=== PATIENT | female | born 1930 | race Caucasian/White ===

== ENCOUNTER 2016-09-20 11:44 | Observation (INO) | payer MEDICARE, OTHER ==
--- NOTE | ~2016-09-20 | HP ---
History And Physical [id number] [place]. [address] NAME: KEKE LARSON : 32 STATUS : ADM Justin PAT#: [id number] AGE: 85 ADM/REG DATE : 09/20/16 MR#: [id number] REPORT SERV DATE: 09/20/16 DICTATED BY: ELIEZER VELAZQUEZ DATE: 09/20/16 REPORT STATUS : Draft TRANSCRIBED BY: MODL DATE: 09/20/16 DATE OF ADMISSION: 09/20/2016 CHIEF COMPLAINT: "I have too much fluid." HISTORY OF PRESENT ILLNESS: Ms. Larson is an 85-year-old female with a history of hypertension, atrial fibrillation, and myasthenia gravis, who presented to the hospital with a complaint of volume overload. The patient states that for the past couple of weeks, she has been progressively feeling weak, states that she spends most of her time in bed and can transfer herself only to her commode and then goes back to bed. She says that with the slightest activity she feels severely short of breath. She states that she noticed that she was developing lower extremity edema associated with severe pain prompting her to present to the hospital today. At the time of her presentation to the emergency room, Hospital Medicine was consulted to admit the patient for anasarca. At the time of my evaluation, review of her labs noted. Her BNP was normal, her electrolytes were all normal, as well as her albumin and liver function tests. On physical exam, I did not note any findings consistent with anasarca. The patient only had bilateral lower extremity edema likely due to venous stasis. However, on interviewing with the patient, the patient states that she feels she has a lot of fluid and does want to leave until the fluid has been got off her. Given this, a decision was made to admit the patient to observation for trial of IV Lasix and also to observe the patient. Also history given by the patient states that she feels severely weak and cannot really carry on her activities of daily living. She states that she lives at home with her who also has other medical issues. Given this plan, decision was also made to admit the patient to have the patient evaluated by Physical Therapy. She denies any fevers, any chills, or any recent sick contacts. REVIEW OF SYSTEMS: A 12-point review of system was performed. All systems were negative except as noted in the HPI. PAST MEDICAL HISTORY: 1. Hypertension. 2. Gastroesophageal reflux disease. 3. Atrial fibrillation. 4. Myasthenia gravis. 5. Peripheral artery disease. 6. Pain management, on chronic pain medications. PAST SURGICAL HISTORY: 1. 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 2. Cholecystectomy. 3. Appendectomy. 4. Hysterectomy with left oophorectomy. 5. Thymectomy. FAMILY HISTORY: Noncontributory. History And Physical [address] [address] NAME: KEKE LARSON : 32 STATUS : ADM Justin PAT#: [id number] AGE: 85 ADM/REG DATE : 09/20/16 MR#: [id number] REPORT SERV DATE: 09/20/16 DICTATED BY: ELIEZER VELAZQUEZ DATE: 09/20/16 REPORT STATUS : Draft TRANSCRIBED BY: PAPI DATE: 09/20/16 SOCIAL HISTORY: The patient lives in [place], [place]. and lives at home with her . She denies any tobacco use, any alcohol use, or illicit drug use. Ambulates with a walker. ALLERGIES: THE PATIENT IS ALLERGIC TO NITROFURANTOIN AND MUSCLE RELAXANTS. HOME MEDICATIONS: 1. Valium 2 mg p.o. at bedtime. 2. Enalapril 10 mg p.o. daily. 3. Flecainide 100 mg p.o. daily. 4. Flecainide 50 mg p.o. at bedtime. 5. Furosemide 40 mg p.o. daily. 6. Furosemide 40 mg p.o. at bedtime as needed. 7. Gabapentin 100 mg p.o. three times a day. 8. Omeprazole 40 mg p.o. daily. 9. Pyridostigmine 120 mg p.o. four times daily. 10.Warfarin 3 mg p.o. at bedtime. PHYSICAL EXAMINATION: VITAL SIGNS: On presentation, blood pressure 144/84 with a pulse of 98, respiration 18, and O2 saturation 95% on room air. GENERAL: The patient is lying in bed, does no appear in acute distress. Speaking in full sentences. HEENT: Normocephalic and atraumatic. Extraocular motors intact. Moist oral mucosa. NECK: Trachea midline and symmetric. No JVD noted. No thyromegaly present. No lymphadenopathy palpated. CHEST: Well-healed midline scar noted. Nontender to palpation. CARDIOVASCULAR: Irregularly irregular rate and rhythm. I did not appreciate any murmurs. LUNGS: Clear to auscultation bilaterally. No added breath sounds. ABDOMEN: Positive bowel sounds. Nontender. Nondistended. No masses palpated. EXTREMITIES: 1+ to 2+ pitting edema noted in lower extremities bilaterally from the knee distally with right worse than left. Extremities appeared erythematous; however, no evidence of cyanosis or clubbing present. NEUROLOGIC: Alert and oriented x3. No focal deficits appreciated. LABORATORY DATA: WBC 7.0, hemoglobin 14.0, hematocrit 41.2, platelets 219. Sodium 139, potassium 4.1, chloride 102, bicarb 35, BUN is 17, creatinine 0.75, glucose 72, BNP 93.8. IMAGING: Portable chest x-ray: Impression, cardiomegaly, no acute process. ASSESSMENT/PLAN: 1. Lower extremity edema. No evidence of anasarca. BNP normal. The patient otherwise complaining of lower extremity pain. We will admit to observation and start the patient on Lasix IV 40 mg x3 doses. Consult PT for evaluation and treatment. 2. Myasthenia gravis. Currently on Pyridostigmine. Continue current therapy. 3. Gastroesophageal reflux disease, stable, continue omeprazole. History And Physical [address] [address] NAME: KEKE LARSON : 32 STATUS : ADM Justin PAT#: [id number] AGE: 85 ADM/REG DATE : 09/20/16 MR#: [id number] REPORT SERV DATE: 09/20/16 DICTATED BY: ELIEZER VELAZQUEZ DATE: 09/20/16 REPORT STATUS : Draft TRANSCRIBED BY: MODL DATE: 09/20/16 4. Atrial fibrillation. The patient currently on anticoagulation with warfarin. She is rate controlled. We will continue current therapy. 5. Hypertension, controlled. Continue home medications. 6. The patient will be full code at this time. 7. Deep venous thrombosis prophylaxis. The patient is already therapeutically anticoagulated on warfarin. JAYDA/PAPI Eliezer Velazquez MD / [id number] CC: Brent Trivedi M.D.
--- NOTE | ~2016-09-20 | DS ---
Discharge Summary [place] [facility] [place]. [address] NAME: KEKE DENSON : 32 STATUS : ADM Justin PAT#: [id number] AGE: 85 ADM/REG DATE : 09/20/16 MR#: [id number] REPORT SERV DATE: 09/22/16 DICTATED BY: ELIEZER VELAZQUEZ DATE: 09/21/16 REPORT STATUS : Draft TRANSCRIBED BY: MODL DATE: 09/21/16 ADMISSION DATE: 09/20/2016 DISCHARGE DATE: The patient is an 85-year-old female with a history of hypertension, atrial fibrillation, who presented to the hospital with a complaint of volume overload. For further details, please refer to H and P dictated by me on 09/20/2016. HOSPITAL COURSE: The patient was admitted to observation for a trial of IV Lasix. She has responded well to IV Lasix with over 1.3 L of output. Additional history obtained, noted that the patient is currently being seen by home health who tried to get the patient out of bed. Also, the patient is bed bound. From history obtained yesterday, she only leaves bed only to use her bedside commode. Given this additional history, the utility of a PT eval was deemed not necessary as the patient will not be able to participate in active physical therapy to regain strength and function. Given the patient has remained hemodynamically stable, has responded to IV fluids, the patient is subsequently being discharged today. Plan has been discussed with patient, who voices understanding and is agreeable with this plan. DISCHARGE DIAGNOSES: 1. Lower extremity edema. 2. Myasthenia gravis. 3. Gastroesophageal reflux disease. 4. Atrial fibrillation. 5. Hypertension. DISPOSITION: The patient will be discharged home with home health and PT. ACTIVITY: As tolerated. DIET: As tolerated. Greater than 30 minutes were spent coordinating care, providing counseling, dictation of note, and medication reconciliation. DICTATED BY: MD JAYDA Moffett/PAPI Eliezer Velazquez MD / [id number] Discharge [facility] [address] [facility] [place]. [address] NAME: KEKE DENSON : 32 STATUS : ADM Justin PAT#: [id number] AGE: 85 ADM/REG DATE : 09/20/16 MR#: [id number] REPORT SERV DATE: 09/22/16 DICTATED BY: ELIEZER VELAZQUEZ DATE: 09/21/16 REPORT STATUS : Draft TRANSCRIBED BY: MODL DATE: 09/21/16 CC: MD Kristy Moffett MD
--- NOTE | ~2016-09-20 | DS ---
Discharge Summary [address] [place]. [address] NAME: KEKE DENSON : 32 STATUS : ADM Justin PAT#: [id number] AGE: 85 ADM/REG DATE : 09/20/16 MR#: [id number] REPORT SERV DATE: 09/22/16 DICTATED BY: ELIEZER VELAZQUEZ DATE: 09/22/16 REPORT STATUS : Draft TRANSCRIBED BY: MODL DATE: 09/22/16 ADMISSION DATE: 09/20/2016 DISCHARGE DATE: ADDENDUM: To discharge summary dictated by mn on 09/21/2016, work #[id number]. The patient was unable to go home yesterday due to logistics reasons. Case management has been consulted to assist in the process and the assistance is greatly appreciated. The patient will subsequently be discharged today. All other information in the discharge summary remains the same. DICTATED BY: MD JAYDA Moffett/PAPI Eliezer Velazquez MD / [id number] CC: MD Kristy Moffett MD
[~2016-09-20 11:44] MED LIST: ACET500CAP PO; BEN25 PO; BETAPACE80 PO; C5 PO; COUMADIN3 MG PO; COUMADIN4 MG PO; FLECAINIDE100 MG PO; FLECAINIDE50 MG PO; HALF81 PO; HCTZ12.5 PO; HYDROCHLOROT12.5 MG PO; JANTOVEN3 MG PO; K-TABS10 MEQ PO; L40 PO; LAN25 PO; LOP25 PO; LORTAB 5 PO; MICRO-K10 MEQ PO; MOBIC15 MG PO; NEXIUM40 PO; NORCO1 TA2 PO; NORCO1 TAB PO; PCET PO; PRILOSEC40 MG PO; PYRID60 PO; SOTALOL 80 MG OR; TAMBO50 PO; TAMBOCOR PO; V120 PO; V2 PO; VASOTEC10 PO; VERELAN240 MG PO; VICODINTAB PO; VISINE0.05 % OPH; VOLTAREN1 % TOP; ZOLOFT25 MG PO
[2016-09-20 12:29] LABS: BASOPHILS 0 %; EOSINOPHILS 0 %; IMMATURE GRANULOCYTES 0.1 %; IMMATURE GRANULOCYTES ABSOLUTE 0.01 10/3/uL (0.0-0.11); LYMPHOCYTES 36.1 %; LYMPHOCYTES ABSOLUTE 2.52 10/3/uL (0.67-4.30); MEAN PLATELET VOLUME 10.6 fL (9.2-13.0); MONOCYTES 7.7 %; MONOCYTES ABSOLUTE 0.54 10/3/uL (0.21-1.20); NEUTROPHILS 56.1 %; NEUTROPHILS ABSOLUTE 3.92 10/3/uL (2.02-8.40); RED CELL COUNT 4.49 10/6/uL (4.0-5.6)
[2016-09-20 12:30] LABS: ER CBC TAT 0 Hrs 05 Mins; HEMATOCRIT 41.2 % (36.0-48.0); MANUAL DIFF NO %; MEAN CORPUSCULAR HEMOGLOB 31.2 pg (26.0-34.0); MEAN CORPUSCULAR VOLUME 91.8 fL (80-100); PLATELET COUNT 219 10/3/uL (150-400); RBC DISTRIBUTION WIDTH 12.9 % (12.0-16.0)
[2016-09-20 12:36] LABS: INTERNATIONAL NORMAL RATI 2.3 UNITS (-); PARTIAL THROMBO TIME 39.5 SEC (22.5-37.2); PROTIME (NOT ORD) 25.3 SEC (12.0-14.5)
[2016-09-20 12:53] LABS: BUN (BLOOD UREA NITROGEN) 17 MG/DL (6-23); CALCIUM, SERUM 9.1 MG/DL (8.5-10.4); CHEST PAIN PROFILE TAT 0 Hrs 29 Mins; CHLORIDE, SERUM 102 MMOL/L (96-112); CO2 (CARBON DIOXIDE) 35 MMOL/L (24-34); CREATININE 0.75 MG/DL (0.55-1.02); GFR AFRICAN AMERICAN 85 ML/MIN (>=60); GFR NON AFRICAN AMERICAN 74 ML/MIN (>=60); GLUCOSE, SERUM 72 MG/DL (60-99); POTASSIUM, SERUM 4.1 MMOL/L (3.5-5.3); SODIUM, SERUM 139 MMOL/L (135-148); TROPONIN I <0.02 NG/ML (<0.05); ULTRASENSITIVE TSH 0.914 MCIU/ML (0.358-3.740)
[2016-09-20] MEDS ORDERED: NEUR100 PO (13:11)
[2016-09-20] MEDS ORDERED: PYRID60 PO (13:12)
[2016-09-20] MEDS ORDERED: L40 PO ×2 (13:13→13:14)
[2016-09-20] MEDS ORDERED: FLECAINIDE50 MG PO ×2 (13:17)
[2016-09-20] MEDS ORDERED: VASOTEC10 PO (13:19)
[2016-09-20] MEDS ORDERED: COUMADIN3 MG PO (13:19)
[2016-09-20] MEDS ORDERED: PRILOSEC40 MG PO (13:20)
[2016-09-20] MEDS ORDERED: V2 PO (13:20)
[2016-09-20] MEDS ORDERED: NORCO1 TAB PO (13:21)
[2016-09-20] MEDS ORDERED: BLU EMU (13:24)
[2016-09-20 13:38] LABS: ALBUMIN 3.8 G/DL (3.5-5.0); ALKALINE PHOSPHATASE 72 U/L (45-117); SGPT(ALT) 26 U/L (5-65); TOTAL BILIRUBIN 0.6 MG/DL (0-1.2); TOTAL PROTEIN 7.5 G/DL (6.0-8.5)
[2016-09-20 13:39] LABS: DIRECT BILIRUBIN 0.1 MG/DL (0.0-0.4); INDIRECT BILIRUBIN(NOT ORDER) 0.5 MG/DL (0.1-0.9)
[2016-09-20 13:40] LABS: SGOT(AST) 26 U/L (5-40)
[2016-09-20 13:43] LABS: PREALBUMIN 21.5 MG/DL (17.0-43.0)
[2016-09-20 16:44] LABS: FREE T4 1.42 NG/DL (0.76-1.46)
[2016-09-21 05:21] LABS: BASOPHILS 0 %; EOSINOPHILS 0 %; HEMATOCRIT 42.4 % (36.0-48.0); HEMOGLOBIN 13.9 g/dL (12.0-16.0); IMMATURE GRANULOCYTES 0.1 %; IMMATURE GRANULOCYTES ABSOLUTE 0.01 10/3/uL (0.0-0.11); LYMPHOCYTES 47.1 %; MEAN CORPUS HGB CONC 32.8 g/dL (32.0-36.0); MEAN CORPUSCULAR HEMOGLOB 30.7 pg (26.0-34.0); MEAN CORPUSCULAR VOLUME 93.6 fL (80-100); MEAN PLATELET VOLUME 10.5 fL (9.2-13.0); MONOCYTES 7.9 %; MONOCYTES ABSOLUTE 0.54 10/3/uL (0.21-1.20); NEUTROPHILS 44.9 %; NEUTROPHILS ABSOLUTE 3.05 10/3/uL (2.02-8.40); PLATELET COUNT 208 10/3/uL (150-400); RBC DISTRIBUTION WIDTH 12.8 % (12.0-16.0); RED CELL COUNT 4.53 10/6/uL (4.0-5.6); WHITE BLOOD CELLS 6.8 10/3/uL (4.5-10.5)
[2016-09-21 05:22] LABS: MANUAL DIFF NO %
[2016-09-21 05:35] LABS: INTERNATIONAL NORMAL RATI 2.3 UNITS (-); PROTIME (NOT ORD) 24.7 SEC (12.0-14.5)
[2016-09-21 05:40] LABS: A/G RATIO 0.9 (0.7-1.9); ALBUMIN 3.4 G/DL (3.5-5.0); ALKALINE PHOSPHATASE 68 U/L (45-117); BUN (BLOOD UREA NITROGEN) 21 MG/DL (6-23); CALCIUM, SERUM 8.8 MG/DL (8.5-10.4); CHLORIDE, SERUM 102 MMOL/L (96-112); CO2 (CARBON DIOXIDE) 33 MMOL/L (24-34); GFR AFRICAN AMERICAN 79 ML/MIN (>=60); GFR NON AFRICAN AMERICAN 68 ML/MIN (>=60); GLOBULIN 3.6 G/DL (2.5-4.1); POTASSIUM, SERUM 3.8 MMOL/L (3.5-5.3); SGOT(AST) 24 U/L (5-40); SGPT(ALT) 26 U/L (5-65); SODIUM, SERUM 138 MMOL/L (135-148)
[2016-09-21 05:41] LABS: GLUCOSE, SERUM 96 MG/DL (60-99); TOTAL BILIRUBIN 1.1 MG/DL (0-1.2)
[2016-09-22 03:41] LABS: INTERNATIONAL NORMAL RATI 2.6 UNITS (-); PROTIME (NOT ORD) 27.4 SEC (12.0-14.5)
== END 2016-09-22 16:30 | disposition home health service (06) ==
LOC: ER 11:44 → CDU1 14:25
PROVIDERS: Hospitalist; Internal Medicine
DX: R60.0 Localized edema (principal); G70.00 Myasthenia gravis without (acute) exacerbation; K21.9 Gastro-esophageal reflux disease without esophagitis; I48.91 Unspecified atrial fibrillation; I10 Essential (primary) hypertension; Z79.01 Long term (current) use of anticoagulants; Z79.899 Other long term (current) drug therapy; Z90.49 Acquired absence of other specified parts of digestive tract; Z90.710 Acquired absence of both cervix and uterus; Z98.890 Other specified postprocedural states
CPT/HCPCS: 71010; 80048; 80053; 80076; 83735; 83880; 84134; 84439; 84443; 84484; 85025; 85610; 85730; 93005; 96374; 96375; 96376; 97162-GP; 97530-GP; 99285; A9270-GY; G0378; G8978-CM-GP; G8979-CL-GP; J2405

== ENCOUNTER 2017-01-09 03:16 | Inpatient (IN) | payer MEDICARE, OTHER ==
[~2017-01-09] VITALS: Ht 157.5 cm; Wt 75.5 kg
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
--- NOTE | ~2017-01-09 | OP ---
Record Of Operation [facility] [address] [place]. [address] NAME: KEKE DENSON : 32 STATUS : ADM IN [facility]#: [id number] AGE: 86 ADM/REG DATE : 01/09/17 MR#: [id number] REPORT SERV DATE: 01/10/17 DICTATED BY: RICARDO HARRY DATE: 01/09/17 REPORT STATUS : Draft TRANSCRIBED BY: MODL DATE: 01/09/17 DATE OF PROCEDURE: 01/09/2017 PREOPERATIVE DIAGNOSIS: Right shoulder dislocation. POSTOPERATIVE DIAGNOSIS: Right shoulder dislocation. PROCEDURE: Closed reduction of right shoulder under anesthesia. ANESTHESIA: General. ESTIMATED BLOOD LOSS: None. IMPLANTS: None. SPECIMEN: None. ANTIBIOTICS: None. HISTORY: An 86-year-old who dislocated her shoulder yesterday at her [facility]. Seen in the emergency department last night, was unable to be reduced, so she was transferred here for reduction in the operating room. We discussed the risks and benefits of surgery, closed versus open reduction, with her and her family, and they elected to proceed. OPERATIVE NOTE: The patient was seen in the preoperative area, consented, and marked. We answered all question she had to her satisfaction. She was then taken to the operative suite, placed in supine position, and underwent general anesthesia. We then closed-reduced her shoulder by performing a reduction maneuver. We then used the x-ray to confirm reduction of the shoulder on multiple views including an axillary lateral. We then, when that was completed, placed her in a sling. She was awakened, no complications, taken to the PACU in stable condition. POSTOPERATIVE PLAN: She will be discharged back to her [facility] when available. ANTHONY/PAPI Ricardo Harry MD / [id number] CC: Ricardo Harry MD
--- NOTE | ~2017-01-09 | HP ---
History And Physical [facility] [address] [facility] [place]. [address] NAME: KEKE DENSON : 32 STATUS : ADM IN [facility]#: [id number] AGE: 86 ADM/REG DATE : 01/09/17 MR#: [id number] REPORT SERV DATE: 01/09/17 DICTATED BY: IRAM RAMOS DATE: 01/09/17 REPORT STATUS : Draft TRANSCRIBED BY: PAPI DATE: 01/09/17 DATE OF ADMISSION: 01/09/2017 REASON FOR CONSULTATION: Medical management. This is an 86 years old female with a past medical history of myasthenia gravis, currently on Mestinon, being cared for by her primary care physician, and history of chronic atrial fibrillation on chronic anticoagulation with warfarin. The patient was recently discharged from the hospital in August 2016, for which the patient was transferred to rehab facility at [facility] the night prior to her admission. The patient was being transferred by personnel at the [facility] facility and during the transfer developed acute right shoulder pain according to the patient's daughter. An x-ray was performed by the physician at that facility and found to have acute right shoulder dislocation. An attempted bedside reduction was performed and was not successful. Therefore the patient was transferred to [facility]. The patient is currently admitted to Orthopedic Surgery Service with Dr. Ricardo Harry. The patient denies any chest pain or shortness of breath but does have obvious pain from the right shoulder area. The patient's myasthenia gravis currently has been stable, however states that she cannot miss her Mestinon dosage and is currently a couple of hours late due to her transfer to the hospital. REVIEW OF SYSTEMS: No subjective fever or chills. No nausea or vomiting. No chest pain. No shortness of breath. No abdominal pain. Positive right shoulder pain. Please refer to HPI for further details. PAST MEDICAL HISTORY: Myasthenia gravis. Atrial fibrillation. GERD. Hypertension. Peripheral artery disease. Chronic pain management. Diastolic CHF. Iron-deficiency anemia with microcytic anemia. PAST SURGICAL HISTORY: Cholecystectomy, appendectomy, hysterectomy with left oophorectomy with thymectomy and left extremity thrombectomy. FAMILY HISTORY: Coronary artery disease and type 2 diabetes. SOCIAL HISTORY: No tobacco, alcohol, or illicit drugs. At baseline, uses a walker. Currently at [facility] facility in [facility]. ALLERGIES: ALLERGIES TO MUSCLE RELAXANTS AND MACROBID. PHYSICAL EXAMINATION: VITAL SIGNS: Temperature of 98.7, blood pressure 146/96 with a pulse of 113, and saturating 95% on room air. GENERAL: The patient is alert and oriented x3, currently in some mild distress secondary to the right shoulder pain but otherwise stable and alert and oriented x3. RESPIRATORY: Clear to auscultation bilaterally. No wheezes or crackles. No signs of tachypnea. History And Physical [address] [address] NAME: KEKE DENSON : 32 STATUS : ADM IN [facility]#: [id number] AGE: 86 ADM/REG DATE : 01/09/17 MR#: [id number] REPORT SERV DATE: 01/09/17 DICTATED BY: IRAM RAMOS DATE: 01/09/17 REPORT STATUS : Draft TRANSCRIBED BY: PAPI DATE: 01/09/17 CARDIOVASCULAR: S1, S2. Irregularly irregular. No murmurs, rubs, or gallops. No JVD. ABDOMEN: Positive bowel sounds. Soft, nontender. No rebound. No fluid wave. No distention. EXTREMITIES: Warm with bilateral trace edema of the lower extremities and dislocated right upper extremity. NEUROLOGIC: Cranial nerves II through XII are grossly intact. Moves all four extremities, however with some limitation of the right upper extremity secondary to acute dislocation. LAB DATA: Sodium 138, potassium 4.1 with a chloride of 104, bicarb of 29, BUN 15, creatinine 0.61 with a glucose of 92, albumin of 3.1, total bilirubin of 0.7 with alkaline phosphatase of 74, ALT of 19, AST of 18. White count of 7.9 with a hemoglobin of 13.2, platelet count of 181, INR of 3.1. EKG with atrial fibrillation, chronic with T-wave in the inferior leads. No ST elevation. Ventricular rate of around 111. ASSESSMENT AND PLAN: 1. Acute right shoulder dislocation. 2. Myasthenia gravis. 3. Chronic atrial fibrillation. 4. Hypertension. The patient is currently admitted to Orthopedic Surgery Service. They plan on sending the patient to the OR today. I have discussed with Dr. Harry concerning the patient's INR being 3.1. He plans on performing a closed reduction at this time; however, if the closed reduction is not successful, then the patient will be sent back to the room and INR will be treated at that time and scheduled for repeat procedure with open reduction if necessary. I also agree with continue with pain management. The patient's pain is currently not controlled at this time and causing some mild tachycardia in the low teens. Nurse informed also recommend to continue with the patient's myasthenia gravis medication with Mestinon and also continue with her cardiac medications. MILENA/PAPI Iram Ramos M.D. / [id number] CC: Ricardo Harry MD UNKNOWN
[~2017-01-09 03:16] MED LIST changes: +BLU EMU; +NEUR100 PO
[2017-01-09] MEDS ORDERED: NEUR100 PO (06:22)
[2017-01-09] MEDS ORDERED: L40 PO (06:23)
[2017-01-09] MEDS ORDERED: PYRID60 PO (06:23)
[2017-01-09] MEDS ORDERED: FLECAINIDE50 MG PO ×2 (06:24→06:25)
[2017-01-09] MEDS ORDERED: VASOTEC10 PO (06:25)
[2017-01-09] MEDS ORDERED: V2 PO (06:26)
[2017-01-09] MEDS ORDERED: C2 PO (06:26)
[2017-01-09] MEDS ORDERED: PRILOSEC40 MG PO (06:27)
[2017-01-09] MEDS ORDERED: NORCO1 TAB PO (06:29)
[2017-01-09 10:04] LABS: BASOPHILS 0 %; EOSINOPHILS 0 %; HEMOGLOBIN 13.2 g/dL (12.0-16.0); IMMATURE GRANULOCYTES 0.1 %; IMMATURE GRANULOCYTES ABSOLUTE 0.01 10/3/uL (0.0-0.11); LYMPHOCYTES ABSOLUTE 3.16 10/3/uL (0.67-4.30); MEAN CORPUSCULAR HEMOGLOB 29.6 pg (26.0-34.0); MEAN PLATELET VOLUME 10.7 fL (9.2-13.0); MONOCYTES 7.1 %; MONOCYTES ABSOLUTE 0.56 10/3/uL (0.21-1.20); NEUTROPHILS 52.8 %; NEUTROPHILS ABSOLUTE 4.17 10/3/uL (2.02-8.40); PLATELET COUNT 181 10/3/uL (150-400); RBC DISTRIBUTION WIDTH 12.9 % (12.0-16.0); RED CELL COUNT 4.46 10/6/uL (4.0-5.6); WHITE BLOOD CELLS 7.9 10/3/uL (4.5-10.5)
[2017-01-09 10:06] LABS: MANUAL DIFF NO %; MEAN CORPUSCULAR VOLUME 89.7 fL (80-100)
[2017-01-09 10:11] LABS: INTERNATIONAL NORMAL RATI 3.1 UNITS (-)
[2017-01-09 10:12] LABS: PROTIME (NOT ORD) 31.8 SEC (12.0-14.5)
[2017-01-09 10:20] LABS: A/G RATIO 0.9 (0.7-1.9); ALBUMIN 3.1 G/DL (3.5-5.0); ALKALINE PHOSPHATASE 74 U/L (45-117); CALCIUM, SERUM 8.9 MG/DL (8.5-10.4); CHLORIDE, SERUM 104 MMOL/L (96-112); CO2 (CARBON DIOXIDE) 29 MMOL/L (24-34); CREATININE 0.61 MG/DL (0.55-1.02); DIRECT BILIRUBIN 0.1 MG/DL (0.0-0.4); GFR AFRICAN AMERICAN 96 ML/MIN (>=60); GFR NON AFRICAN AMERICAN 83 ML/MIN (>=60); GLOBULIN 3.5 G/DL (2.5-4.1); GLUCOSE, SERUM 92 MG/DL (60-99); INDIRECT BILIRUBIN(NOT ORDER) 0.6 MG/DL (0.1-0.9); POTASSIUM, SERUM 4.1 MMOL/L (3.5-5.3); SGOT(AST) 18 U/L (5-40); SGPT(ALT) 19 U/L (5-65); SODIUM, SERUM 138 MMOL/L (135-148); TOTAL BILIRUBIN 0.7 MG/DL (0-1.2); TOTAL PROTEIN 6.6 G/DL (6.0-8.5)
[2017-01-09 10:21] LABS: BUN (BLOOD UREA NITROGEN) 15 MG/DL (6-23)
[2017-01-10 05:25] LABS: BASOPHILS 0.1 %; BASOPHILS ABSOLUTE 0.01 10/3/uL (0.0-0.16); EOSINOPHILS 0 %; HEMATOCRIT 40.7 % (36.0-48.0); HEMOGLOBIN 13.3 g/dL (12.0-16.0); IMMATURE GRANULOCYTES 0.2 %; IMMATURE GRANULOCYTES ABSOLUTE 0.02 10/3/uL (0.0-0.11); LYMPHOCYTES 40.1 %; LYMPHOCYTES ABSOLUTE 3.31 10/3/uL (0.67-4.30); MEAN CORPUS HGB CONC 32.7 g/dL (32.0-36.0); MEAN CORPUSCULAR HEMOGLOB 29.6 pg (26.0-34.0); MEAN CORPUSCULAR VOLUME 90.4 fL (80-100); MEAN PLATELET VOLUME 10.9 fL (9.2-13.0); MONOCYTES 5.7 %; MONOCYTES ABSOLUTE 0.47 10/3/uL (0.21-1.20); NEUTROPHILS 53.9 %; NEUTROPHILS ABSOLUTE 4.44 10/3/uL (2.02-8.40); PLATELET COUNT 199 10/3/uL (150-400); RBC DISTRIBUTION WIDTH 12.8 % (12.0-16.0); WHITE BLOOD CELLS 8.3 10/3/uL (4.5-10.5)
[2017-01-10 05:26] LABS: MANUAL DIFF NO %
[2017-01-10 05:28] LABS: BUN (BLOOD UREA NITROGEN) 15 MG/DL (6-23); CALCIUM, SERUM 8.9 MG/DL (8.5-10.4); CHLORIDE, SERUM 103 MMOL/L (96-112); CO2 (CARBON DIOXIDE) 32 MMOL/L (24-34); CREATININE 0.87 MG/DL (0.55-1.02); GFR AFRICAN AMERICAN 71 ML/MIN (>=60); GFR NON AFRICAN AMERICAN 61 ML/MIN (>=60); POTASSIUM, SERUM 4.2 MMOL/L (3.5-5.3); SODIUM, SERUM 139 MMOL/L (135-148)
[2017-01-10 05:29] LABS: GLUCOSE, SERUM 118 MG/DL (60-99)
[2017-01-10 05:38] LABS: INTERNATIONAL NORMAL RATI 2.6 UNITS (-); PROTIME (NOT ORD) 27.8 SEC (12.0-14.5)
== END 2017-01-10 18:45 | DRG 563 ==
LOC: ENRESERV → ENRESERVDT → ENRESERVTM → 1SO 04:50
PROVIDERS: Internal Medicine; Orthopaedic Surgery Sports Medicine
PROC: 0RSJXZZ Reposition Right Shoulder Joint, External Approach (ICD-10-PCS; principal; 2017-01-09 14:30)
DX: S43.084A Other dislocation of right shoulder joint, initial encounter (principal); G70.00 Myasthenia gravis without (acute) exacerbation; I11.0 Hypertensive heart disease with heart failure; I50.32 Chronic diastolic (congestive) heart failure; I48.2 Chronic atrial fibrillation; K21.9 Gastro-esophageal reflux disease without esophagitis; X50.9XXA Other and unspecified overexertion or strenuous movements or postures, initial encounter; Y92.129 Unspecified place in nursing home as the place of occurrence of the external cause; Z79.01 Long term (current) use of anticoagulants; Z90.710 Acquired absence of both cervix and uterus
CPT/HCPCS: 71010; 73030-RT; 80048; 80053; 82248; 83735; 85025; 85610; 93005; 97162-GP; 97166-GO; A9270-GY; G8978-CM-GP; G8979-CM-GP; J0690; J3010